=== PATIENT | female | born 1985 | race Caucasian/White ===

== ENCOUNTER 2023-10-14 11:13 | Emergency (ER) | payer SELFPAY ==
[2023-10-14 11:21] VITALS: BP 104/64; PULSE 95; RESP 16; TEMP 37.3; O2SAT 100
--- NOTE | 2023-10-14 11:47 | ED.URI ---
HPI - URI/Sore Throat General Chief Complaint: Upper Respiratory Infection Stated Complaint: Sore Throat/Body Aches Time Seen by Provider: 10/14/23 11:47 Source: patient Mode of arrival: ambulatory Limitations: no limitations History of Present Illness HPI Narrative: 38-year-old female presents with complaint of sore throat, swollen tonsils, fatigue, chills and body aches for 4 days. Called her primary care physician regarding symptoms, sent pincher of her throat and was prescribed amoxicillin. Has been taking amoxicillin for 3 days. Reports worsening of symptoms. All systems reviewed and negative except as noted above. Related Data Home Medications Medication Instructions Recorded Confirmed amoxicillin 250 mg capsule 250 mg DIRECTED 10/14/23 10/14/23 Allergies Allergy/AdvReac Type Severity Reaction Status Date / Time No Known Allergies Allergy Verified 10/14/23 11:31 Review of Systems Review of Systems: CONSTITUTIONAL: Reports fever, fatigue, chills, or sweats. EYES: Denies visual changes, redness, or discharge. ENT: Denies rhinorrhea, congestion. Reports sore throat. Denies otalgia. CARDIOVASCULAR: Denies chest pain, palpitations, or edema. RESPIRATORY: Denies cough or dyspnea. GASTROINTESTINAL: Denies abdominal pain, nausea, vomiting, or diarrhea. GENITOURINARY: Denies dysuria or hematuria. SKIN: Denies rash or itching. MUSCULOSKELETAL: Denies back pain, joint pain, or myalgia. NEUROLOGIC: Denies headache, numbness, or weakness. PSYCHIATRIC: Denies anxiety or depression. All other systems reviewed are negative, except as documented in HPI. PMFSH Comments At time of signature, agree with nursing past medical, surgical, social and family history. There is no relevant family history pertinent to the presenting complaint. Exam Narrative: GENERAL: This is a well-nourished, well-developed patient, in no apparent distress. HEAD: normocephalic, atraumatic. EYES: PERRL. Sclera clear/white. Vision is grossly intact. EARS: External ears normal NOSE: External nose normal with no obvious nasal discharge, nares without redness, no rhinorrhea. THROAT: Mucous membranes moist, tonsils 2+ bilaterally erythematous with exudates NECK: Neck supple,tender with anterior cervical lymphadenopathy by bilaterally. No Masses or thyromegaly. CARDIOVASCULAR: Regular rate and rhythm without murmurs, gallops, or rubs. RESPIRATORY: Clear to auscultation. Breath sounds equal bilaterally. No wheezes, rales, or rhonchi. SKIN: warm, Dry, intact with no suspicious lesions or rash, good texture and turgor. NEURO: awake, alert, and oriented to person, place and time. There were no obvious focal neurologic abnormalities. EXTREMITIES: No joint tenderness, effusion, or edema noted. Course Course Level of Care: Express Care Visit Vital Signs Vital signs: Vital Signs Temperature 37.3 C 10/14/23 11:21 Pulse Rate 95 10/14/23 11:21 Respiratory Rate 16 10/14/23 11:21 Blood Pressure 104/64 10/14/23 11:21 Pulse Oximetry 100 10/14/23 11:21 Oxygen Delivery Room Air 10/14/23 11:21 Temperature 37.3 C 10/14/23 11:21 Pulse Rate 95 10/14/23 11:21 Respiratory Rate 16 10/14/23 11:21 Blood Pressure 104/64 10/14/23 11:21 Pulse Oximetry 100 10/14/23 11:21 Oxygen Delivery Room Air 10/14/23 11:21 Reviewed MDM - URI/Sore Throat MDM Narrative Medical decision making narrative: Patient is aware of diagnosis, understands and agrees to treatment plan. Anticipatory guidance given. Patient agrees to follow-up as directed and is aware of reasons to seek care at the emergency department. Portions of this record may have been created with voice recognition software negative mono. will change abx. pt agrees with plan of care. Differential Diagnosis Differential diagnosis: Likely pharyngitis Lab Data Labs: Lab Results 10/14/23 Range/Units 12:04 POC Monoscreen Negative Monoscreen I
[2023-10-14 12:08] LABS: EDMONONEGPOS Negative
== END 2023-10-14 12:18 | disposition home or self-care (01) ==
PROVIDERS: Emergency Provider Nurse Practitioner Family; PCP Family Medicine
DX: J03.90 Acute tonsillitis, unspecified (principal)
CPT/HCPCS: 36416; 86308; 99213; G0463